=== PATIENT | female | born 1960 | race Hispanic/Latino ===

== ENCOUNTER 2022-09-29 05:18 | Inpatient (IN) | payer OTHER ==
[2022-09-29] VITALS (28 sets, daily range): BP systolic 120–161; BP diastolic 32–80
[~2022-09-29] VITALS: Ht 165.1 cm; Wt 80.0 kg
[2022-09-29] MEDS ORDERED: ONDANSETRON 4MG INJ IVP ONE (05:30)
[2022-09-29 06:17] LABS: BASOPHILS % (AUTO) 0.5 % (0.0-5.0); EOSINOPHILS % (AUTO) 0.1 % (0.0-8.0); HEMATOCRIT 48.3 % (36-48); LYMPHOCYTES % (AUTO) 8.1 % (21.0-51.0); MEAN CORPUSCULAR HEMOGLOBIN 18.2 pg (27.0-33.0); MEAN CORPUSCULAR HGB CONC 29.2 g/dL (32.0-36.0); MEAN CORPUSCULAR VOLUME 62.5 fL (79-99); MONOCYTES % (AUTO) 7.3 % (3.0-13.0); NEUTROPHILS % (AUTO) 81.7 % (40.0-77.0); NUCLEATED RED BLOOD CELLS 0.3 % (0.0-0.19); PLATELET COUNT (AUTO) 385 K/uL (130-400); RED BLOOD CELL COUNT(AUTO) 7.73 MIL/uL (4.00-5.50); RED CELL DISTRIBUTION WIDTH 19.1 % (11.0-15.5); WHITE BLOOD COUNT (AUTO) 17.3 K/uL (4.8-10.8)
[2022-09-29] MEDS: 0.9%NACL 1000ML 1,000 ML IV SCH ×4 (06:17→17:20)
[2022-09-29 06:55] LABS: ALBUMIN 3.8 g/dL (3.5-5.0); CREATININE 1.4 mg/dL (0.5-1.5); POTASSIUM 4.5 mmol/L (3.5-5.1); TOTAL PROTEIN, SERUM 8.5 g/dL (6.0-8.3)
[2022-09-29 07:50] LABS: APPEARANCE,URINE CLEAR (CLEAR); BILIRUBIN,URINE NEGATIVE (NEGATIVE); COLOR,URINE LIGHT-YELLOW (YELLOW); GLUCOSE, URINE (UA) >=1000 mg/dL (NEGATIVE); KETONES,URINE 150 mg/dL (NEGATIVE); LEUKOCYTE ESTERASE ,URINE NEGATIVE Leu/uL (NEGATIVE); NITRATE,URINE NEGATIVE (NEGATIVE); OCCULT BLOOD,URINE SMALL (NEGATIVE); PROTEIN,URINE 30 mg/dL (NEGATIVE); UROBILINOGEN,URINE 0.2 mg/dL (0.2-1.0)
[2022-09-29 07:51] LABS: BACTERIA,URINE RARE /HPF (None Seen); MUCUS,URINE RARE LPF (None Seen); OTHER CASTS, URINE 1 /LPF (None Seen); SQUAMOUS EPITHELIAL CELL,UR RARE /HPF (0-2); WBC,URINE 0-1 /HPF (0-1); YEAST,URINE BUDDING RARE /HPF (None Seen)
[2022-09-29] MEDS ORDERED: 0.9%NACL 1000ML 1,000 ML IV SCH (08:00)
[2022-09-29 08:50] LABS: ABG OXYGEN SATURATION 63.5 % (95.0-99.0); BASE EXCESS,VENOUS BLOOD GAS -25.2 (-2.0-3.0); HCO3,VENOUS BLOOD GAS 5.4 (21.0-28.0); PCO2,VENOUS BLOOD GAS 24 (32-45); PH,VENOUS BLOOD GAS 6.969 (7.350-7.450)
[2022-09-29] MEDS ORDERED: INSULIN REGULAR, HUMAN 3ML 100 UNIT in 0.9%NACL 100ML 100 ML IV SCH ×2 (09:30)
[2022-09-29] MEDS ORDERED: MAGNESIUM 2GM PREMIX 50ML 50 ML IV SCH ×2 (09:30→10:00)
[2022-09-29] MEDS: PANTOPRAZOLE 40 MG/VIAL IVP SCH (09:49)
[2022-09-29] MEDS ORDERED: ERTU1TAB9 PO (09:57)
[2022-09-29] MEDS ORDERED: LEVO125 PO (09:57)
[2022-09-29] MEDS ORDERED: METF625T PO (09:59)
[2022-09-29] MEDS ORDERED: FOLIC ACID 5 MG/ML VIAL IV ONE (10:00)
[2022-09-29] MEDS ORDERED: IPRATROPIUM/ALBUTEROL SULFATE 3 ML SOLUTION IH PRN (10:00)
[2022-09-29] MEDS ORDERED: ACETAMINOPHEN 325 MG TAB PO PRN (10:00)
[2022-09-29] MEDS ORDERED: ONDANSETRON 4MG INJ IVP PRN (10:00)
[2022-09-29] MEDS ORDERED: THIAMINE HCL 100 MG/ML 2ML VIAL IVP SCH (10:00)
[2022-09-29] MEDS: CEFTRIAXONE 1G VIAL IVP SCH (10:25)
[2022-09-29 11:16] LABS: ALBUMIN 3.2 g/dL (3.5-5.0); CREATININE 1.2 mg/dL (0.5-1.5); CRP QUANTITATIVE 21.4 mg/L (0.00-9.0); PHOSPHORUS 5.1 mg/dL (2.5-4.9); POTASSIUM 3.9 mmol/L (3.5-5.1); THYROID STIMULATING HORMONE 0.03 uIU/mL (0.36-3.74); TOTAL PROTEIN, SERUM 7.6 g/dL (6.0-8.3)
[2022-09-29] MEDS: D5W-1/2 NS/20MEQ KCL 1,000 ML IV SCH ×3 (11:16→23:30)
[2022-09-29 11:24] LABS: HEMOGLOBIN A1C 12.3 % (4.0-6.0)
[2022-09-29 12:14] LABS: CHOLESTEROL 210 mg/dL (<200); HDL CHOLESTEROL 46 mg/dL (35-85); LDL DIRECT 129 mg/dL (0-99); TRIGLYCERIDES 217 mg/dL (30-200)
[2022-09-29 13:43] LABS: CREATININE 1.2 mg/dL (0.5-1.5); MAGNESIUM 1.9 mg/dL (1.80-2.40); POTASSIUM 4.2 mmol/L (3.5-5.1)
[2022-09-29 15:43] LABS: CREATININE 1.2 mg/dL (0.5-1.5); MAGNESIUM 2.1 mg/dL (1.80-2.40); POTASSIUM 4.3 mmol/L (3.5-5.1)
[2022-09-29 19:56] LABS: CREATININE 1.2 mg/dL (0.5-1.5); MAGNESIUM 1.8 mg/dL (1.80-2.40); POTASSIUM 3.7 mmol/L (3.5-5.1)
[2022-09-29] MEDS: POTASSIUM CHLORIDE 10MEQ/100ML 100 ML IV PRN (23:21)
[2022-09-29 23:55] LABS: PHOSPHORUS 1.6 mg/dL (2.5-4.9); POTASSIUM 3.4 mmol/L (3.5-5.1)
[2022-09-30] VITALS (19 sets, daily range): BP systolic 111–146; BP diastolic 40–81
[2022-09-30] MEDS: POTASSIUM CHLORIDE 10MEQ/100ML 100 ML IV PRN ×2 (02:26→05:23)
[2022-09-30 04:03] LABS: ABG BASE EXCESS -10.8 mmol/L (-2.0-3.0); ABG PCO2 29 mmHg (32-45)
[2022-09-30 04:04] LABS: ABG OXYGEN SATURATION 95.9 % (95.0-99.0)
[2022-09-30 04:06] LABS: MEAN CORPUSCULAR HEMOGLOBIN 18.3 pg (27.0-33.0); MEAN CORPUSCULAR HGB CONC 30.6 g/dL (32.0-36.0); MEAN CORPUSCULAR VOLUME 59.9 fL (79-99); RED BLOOD CELL COUNT(AUTO) 5.51 MIL/uL (4.00-5.50); RED CELL DISTRIBUTION WIDTH 16.8 % (11.0-15.5); WHITE BLOOD COUNT (AUTO) 7.6 K/uL (4.8-10.8)
[2022-09-30 04:28] LABS: CREATININE 0.9 mg/dL (0.5-1.5); MAGNESIUM 1.8 mg/dL (1.80-2.40); PHOSPHORUS 1.4 mg/dL (2.5-4.9); POTASSIUM 3.2 mmol/L (3.5-5.1); THYROID STIMULATING HORMONE 0.02 uIU/mL (0.36-3.74)
[2022-09-30 04:34] LABS: HEMOGLOBIN A1C 12.7 % (4.0-6.0)
[2022-09-30] MEDS: D5W-1/2 NS/20MEQ KCL 1,000 ML IV SCH (05:25)
[2022-09-30] MEDS ORDERED: INSULIN GLARGINE 100 UNITS/ML 10 ML VIAL SQ ONE (06:00)
[2022-09-30] MEDS ORDERED: POTASSIUM PHOS 15 mMOL+NS250ML 250 ML IV PRN ×2 (07:30→08:00)
[2022-09-30] MEDS ORDERED: GLUCAGON 1MG KIT 1 MG ML IM PRN (08:00)
[2022-09-30] MEDS ORDERED: DEXTROSE 50%-WATER 50 ML DISP.SYRIN IV PRN (08:00)
[2022-09-30] MEDS: ENOXAPARIN SODIUM 40 MG/0.4 ML SYRINGE SQ SCH (08:13)
[2022-09-30] MEDS: NEUTRA-PHOS PACKET 1 EACH PO SCH ×3 (08:14→20:46)
[2022-09-30] MEDS ORDERED: LEVOTHYROXINE 125 MCG TABLET PO SCH (09:00)
[2022-09-30] MEDS: POLYETHYLENE GLYCOL 3350 17 GM POWD.PACK PO SCH (09:38)
[2022-09-30] MEDS: PANTOPRAZOLE 40 MG/VIAL IVP SCH (09:41)
[2022-09-30] MEDS: CEFTRIAXONE 1G VIAL IVP SCH (09:41)
[2022-09-30] MEDS: INSULIN HUMULIN R 100 UNIT/ML 3ML SQ SCH ×3 (11:34→20:45)
[2022-09-30 15:30] LABS: CREATININE 0.8 mg/dL (0.5-1.5); POTASSIUM 3.3 mmol/L (3.5-5.1)
[2022-09-30] MEDS: INSULIN GLARGINE 100 UNITS/ML 10 ML VIAL SQ SCH (20:45)
[2022-09-30] MEDS ORDERED: ATORVASTATIN 20 MG TABLET PO SCH (21:00)
[2022-10-01] VITALS: BP 144/59
[2022-10-01 03:00] VITALS: BP 158/74
[2022-10-01 04:04] LABS: HEMATOCRIT 33.8 % (36-48); MEAN CORPUSCULAR HEMOGLOBIN 18.3 pg (27.0-33.0); MEAN CORPUSCULAR HGB CONC 31.1 g/dL (32.0-36.0); RED BLOOD CELL COUNT(AUTO) 5.73 MIL/uL (4.00-5.50); RED CELL DISTRIBUTION WIDTH 16.8 % (11.0-15.5); WHITE BLOOD COUNT (AUTO) 5.5 K/uL (4.8-10.8)
[2022-10-01 04:18] LABS: CREATININE 0.6 mg/dL (0.5-1.5); MAGNESIUM 2.1 mg/dL (1.80-2.40); PHOSPHORUS 2.7 mg/dL (2.5-4.9)
[2022-10-01 04:25] LABS: POTASSIUM 2.9 mmol/L (3.5-5.1)
[2022-10-01] MEDS: POTASSIUM CHLORIDE 10MEQ/100ML 100 ML IV PRN (04:49)
[2022-10-01] MEDS: INSULIN HUMULIN R 100 UNIT/ML 3ML SQ SCH ×2 (06:17→12:24)
[2022-10-01] MEDS: INSULIN GLARGINE 100 UNITS/ML 10 ML VIAL SQ SCH (06:29)
[2022-10-01] MEDS ORDERED: LEVOTHYROXINE 125 MCG TABLET PO SCH (06:30)
[2022-10-01 06:50] LABS: RETICULOCYTE % (AUTO) 1.68 % (0.42-2.23)
[2022-10-01 07:25] LABS: % IRON SATURATION 46.3 % (22-44)
[2022-10-01 08:00] VITALS: BP 142/81
[2022-10-01] MEDS ORDERED: KCL 20 MEQ ERTAB PO SCH (08:30)
[2022-10-01 08:31] LABS: THYROID STIMULATING HORMONE 0.16 uIU/mL (0.36-3.74)
[2022-10-01] MEDS ORDERED: LACTULOSE 20 GM/30 ML UDCUP PO PRN (09:30)
[2022-10-01] MEDS ORDERED: DOCUSATE SODIUM 100 MG CAP PO SCH (09:30)
[2022-10-01] MEDS ORDERED: LACTULOSE 20 GM/30 ML UDCUP ONE (09:33)
[2022-10-01] MEDS ORDERED: DOCUSATE SODIUM 100 MG CAP PO ONE (09:33)
[2022-10-01] MEDS: CEFTRIAXONE 1G VIAL IVP SCH (09:34)
[2022-10-01] MEDS: POLYETHYLENE GLYCOL 3350 17 GM POWD.PACK PO SCH (09:35)
[2022-10-01] MEDS: ENOXAPARIN SODIUM 40 MG/0.4 ML SYRINGE SQ SCH (09:35)
[2022-10-01] MEDS: NEUTRA-PHOS PACKET 1 EACH PO SCH (09:51)
[2022-10-01] MEDS ORDERED: LEVO112T7 PO (10:26)
[2022-10-01] MEDS ORDERED: METF-444 PO (10:26)
[2022-10-01 12:00] VITALS: BP 130/76
== END 2022-10-01 14:40 | disposition home or self-care (01) | DRG 637 ==
LOC: EDH 05:18 → EDHIP 09:29 → 2CH 10:30 → 3DH 09-30 21:32
PROVIDERS: ADMIT Hospitalist; ATTEND Hospitalist
DX: E11.10 Type 2 diabetes mellitus with ketoacidosis without coma (principal); K85.90 Acute pancreatitis without necrosis or infection, unspecified; N17.9 Acute kidney failure, unspecified; Z20.822 Contact with and (suspected) exposure to COVID-19; E86.0 Dehydration; E78.5 Hyperlipidemia, unspecified; E03.9 Hypothyroidism, unspecified; K80.20 Calculus of gallbladder without cholecystitis without obstruction; D50.9 Iron deficiency anemia, unspecified; D72.829 Elevated white blood cell count, unspecified; E66.01 Morbid (severe) obesity due to excess calories; I10 Essential (primary) hypertension; Z79.4 Long term (current) use of insulin; Z79.84 Long term (current) use of oral hypoglycemic drugs; Z83.3 Family history of diabetes mellitus; Z68.29 Body mass index [BMI] 29.0-29.9, adult
CPT/HCPCS: 36415; 36600; 71045; 74018; 74176; 76705; 80048; 80053; 80061; 81001; 82010; 82607; 82728; 82746; 82803; 82948; 83036; 83540; 83550; 83605; 83690; 83735; 84100; 84145; 84439; 84443; 84481; 84484; 85025; 85027; 85045; 85651; 86140; 86341; 87040; 87635; 87804; 93005; 94664; C9113; G0378; J0696; J1650; J1815; J2405; J3411; J3475; J3480; J3490; J7030